=== PATIENT | female | born 1980 | race Caucasian/White ===

== ENCOUNTER → 2024-06-11 14:32 | Outpatient (REF) | payer BC, SELFPAY ==
[2024-06-17 03:38] LABS: HPV, High Risk Not Detected; HPV, High Risk Source Cervical
== END ==
LOC: CPAP 14:32
PROVIDERS: ATTENDING PHYSICIAN Obstetrics & Gynecology
DX: Z01.419 Encounter for gynecological examination (general) (routine) without abnormal findings (principal)
CPT/HCPCS: 87624

== ENCOUNTER → 2024-06-26 10:17 | Outpatient (REF) | payer BC, SELFPAY | LOC: WDC 10:17 | PROVIDERS: ATTENDING PHYSICIAN Obstetrics & Gynecology | DX: R92.8 Other abnormal and inconclusive findings on diagnostic imaging of breast (principal) | CPT/HCPCS: 76642; 77061; 77065 ==

== ENCOUNTER → 2024-10-17 09:26 | Outpatient (REF) | payer BC, SELFPAY ==
[2024-10-17 10:55] LABS: % Basophils 1.4 % (0-2); % Eosinophils 7.2 % (0-6); % Immature Granulocytes 0.2 % (0-0.5); % Lymphocytes 26.2 % (20.5-51.1); Absolute Basophils 0.1 10^3/uL (0-0.2); Absolute Eosinophils 0.3 10^3/uL (0-0.7); Absolute Lymphocytes 1.1 10^3/uL (1.2-3.4); Absolute Monocytes 0.5 10^3/uL (0.1-0.6); Absolute Neutrophils 2.3 10^3/uL (1.4-6.5); Hematocrit 44.7 % (37.0-47.0); Mean Corp Hgb Conc. 33.6 g/dL (33.0-37.0); Mean Corpuscular Hgb 30.8 pg (27.0-31.0); Mean Corpuscular Volume 91.8 fL (81.0-99.0); Mean Platelet Volume 11.6 fL (7.4-10.4); Nucleated Red Blood Cells % 0 %; Platelet Count 209 10^3/uL (130-400); Red Blood Cell Count 4.87 10^6/uL (4.20-5.40); Red Cell Dist. Width 12.4 % (11.5-14.5); White Blood Cell Count 4.3 10^3/uL (4.8-10.8)
[2024-10-17 11:28] LABS: ALT (SGPT) 21 U/L (0-35); AST (SGOT) 21 U/L (14-36); Albumin 4.9 g/dl (3.5-5.0); Alkaline Phosphatase 48 U/L (38-126); Blood Urea Nitrogen 11 mg/dl (7-17); Calcium 9.4 mg/dl (8.4-10.2); Carbon Dioxide 24 mmol/L (22-30); Chloride 110 mmol/L (98-107); Glucose 85 mg/dl (70-99); HDL Cholesterol 84 mg/dl; LDL Cholesterol, Calculated 83 mg/dl; Potassium 4.8 mmol/L (3.5-5.1); Sodium 140 mmol/L (135-145); Total Bilirubin 1.1 mg/dl (0.2-1.3); Total Cholesterol 177 mg/dl (50-199); Total Protein 7.2 g/dl (6.3-8.2); Triglyceride 53 mg/dl (10-149); Very Low Density Lipoprotein 10 mg/dl (0-30); eGFR > 60.00
[2024-10-17 11:55] LABS: TSH Reflex To Free T4 2.98 uIU/ml (0.47-4.68)
== END ==
LOC: REG 09:26
PROVIDERS: ATTENDING PHYSICIAN Family Medicine; FAMILY PHYSICIAN Internal Medicine
DX: Z00.00 Encounter for general adult medical examination without abnormal findings (principal)
CPT/HCPCS: 36415; 80053; 80061; 84443; 85025